=== PATIENT | female | born 1985 | race Caucasian/White ===

== ENCOUNTER 2016-12-28 02:59 | Emergency (ER) | payer MEDICAID ==
[~2016-12-28] VITALS: Wt 87.0 kg
[~2016-12-28 02:59] MED LIST: BEN25 PO; METO10TA96 PO; NITR-58 PO; PREN1TAB13 PO
[2016-12-28] MEDS ORDERED: KETOROLAC 15 MG INJ IV STA (03:56)
[2016-12-28] MEDS ORDERED: morphine 4 MG/ML VIAL IV STA (03:56)
[2016-12-28] MEDS ORDERED: ONDANSETRON 4 MG INJ IV STA (03:56)
[2016-12-28] MEDS ORDERED: SOD CHLORIDE 0.9% 500 ML IV STA (03:56)
[2016-12-28 04:28] LABS: BASOPHIL # 0.1 10^3/ul (0.0-0.1); BASOPHILS % 0.7 % (0.0-2.0); EOSINOPHILS # 0.1 10^3/ul (0.0-0.5); EOSINOPHILS % 1.4 % (0.0-7.0); HEMATOCRIT 38.4 % (37.0-47.0); HEMOGLOBIN 12.5 g/dl (12.0-16.0); LYMPHOCYTES % 40.2 % (15.0-51.0); MEAN CORPUSCULAR HEMOGLOBIN 26.3 pg (29.0-33.0); MEAN CORPUSCULAR HGB CONC 32.6 g/dl (32.0-37.0); MEAN CORPUSCULAR VOLUME 80.7 fl (82.0-101.0); MEAN PLATELET VOLUME 10.9 fl (7.4-10.4); MONOCYTE # 0.5 10^3/ul (0.3-0.9); MONOCYTES % 6.1 % (0.0-11.0); NEUTROPHIL # 3.8 10^3/ul (1.6-7.5); NEUTROPHILS % 51.5 % (39.0-77.0); PLATELET COUNT 265 10^3/UL (140-415); RED BLOOD COUNT 4.76 10^6/ul (4.20-5.40); WHITE BLOOD COUNT 7.3 10^3/ul (4.8-10.8)
[2016-12-28 04:42] LABS: ADD UMIC YES; UR ASCORBIC ACID NEGATIVE (NEGATIVE); UR BILIRUBIN (Dip) NEGATIVE (NEGATIVE); UR BLOOD (Dip) 3+ mg/dL (NEGATIVE); UR CLARITY CLOUDY (CLEAR); UR COLOR RED (YELLOW); UR GLUCOSE (Dip) 1+ mg/dL (NEGATIVE); UR KETONES (Dip) NEGATIVE (NEGATIVE); UR LEUKOCYTE ESTERASE (Dip) TRACE Leu/ul (NEGATIVE); UR MUCUS MANY /HPF (NONE SEEN); UR NITRITE (Dip) NEGATIVE (NEGATIVE); UR RBC > 182 /HPF (0-5); UR SPECIFIC GRAVITY (Dip) 1.031 (1.003-1.030); UR SQUAMOUS EPITHELIAL CELL FEW /HPF (FEW); UR TOTAL PROTEIN (Dip) 3+ mg/dl (NEGATIVE); UR UROBILINOGEN (Dip) NEGATIVE (NEGATIVE)
[2016-12-28] MEDS ORDERED: HYDROmorphONE 1 MG/ML SYG IV STA (04:44)
[2016-12-28 04:52] LABS: CALCIUM 9.5 mg/dl (8.4-10.2); CREATININE 0.77 mg/dl (0.44-1.00); POTASSIUM 4.2 mmol/L (3.5-5.1)
[2016-12-28] MEDS ORDERED: IBUP200C PO (05:18)
--- NOTE | 2016-12-28 06:16 | ERD ---
ER Documentation Chief Complaint Date/Time DATE: 12/28/16 TIME: 06:06 Chief Complaint Left sided Flank pain since 2300 HPI 31-year-old female presenting with severe left flank pain since 11 PM. The pain radiates to the left lateral abdomen. She denies any associated hematuria or dysuria. She started her period this morning. She complains of associated nausea but no vomiting, fever, diarrhea, constipation, shortness of breath or chest pain. She denies a history of kidney stones. ROS All systems reviewed and are negative except as per history of present illness. Medications Home Meds Reported Medications Ibuprofen* (Ibuprofen*) 200 Mg Capsule, 400 MG PO Q6, CAP 12/28/16 Discontinued Reported Medications Vit-Iron Fumarate-FA ( Vitamins Tablet) 1 Tab Tablet, 1 TAB PO DAILY, #100 07/09/15 Discontinued Scripts Diphenhydramine Hcl* (Benadryl*) 25 Mg Cap, 25 MG PO Q6, #30 CAP Prov:AG LARSEN 03/21/16 Metoclopramide Hcl* (Metoclopramide Hcl*) 10 Mg Tablet, 10 MG PO Q6H Y for NAUSEA AND OR VOMITING for 3 Days, TAB Prov:AG LARSEN 03/21/16 Nitrofurantoin Monohyd Macrocr* (Macrobid*) 100 Mg Capsr, 100 MG PO BID for 7 Days, CAP Prov:SUZIEAG ROSENTHAL C 03/21/16 Allergies Allergies: Coded Allergies: No Known Allergy (Unverified , 12/28/16) PMhx/Soc Medical and Surgical Hx: pt denies Medical Hx, pt denies Surgical Hx History of Surgery: No Anesthesia Reaction: No Hx Neurological Disorder: No Hx Respiratory Disorders: No Hx Cardiac Disorders: No Hx Psychiatric Problems: No Hx Miscellaneous Medical Probl: No Hx Alcohol Use: No Hx Substance Use: No Hx Tobacco Use: No Smoking Status: Never smoker FmHx Family History: No diabetes Physical Exam Vitals Vital Signs Date Time Temp Pulse Resp B/P Pulse Ox O2 Delivery O2 Flow Rate FiO2 12/28/16 05:20 80 18 109/65 100 Room Air 12/28/16 03:10 96.9 65 20 146/91 100 Physical Exam Const: Crying in distress secondary to pain, nontoxic Head: Atraumatic Eyes: Normal Conjunctiva ENT: Normal External Ears, Nose and Mouth. Neck: Full range of motion..~ No meningismus. Resp: Clear to auscultation bilaterally Cardio: Regular rate and rhythm, no murmurs Abd: Soft, non tender, non distended. Normal bowel sounds Skin: No petechiae or rashes Back: No midline or flank tenderness Ext: No cyanosis, or edema Neur: Awake and alert Psych: Normal Mood and Affect Result Diagram: 12/28/16 0400 12/28/16 0400 Results 24 hrs Laboratory Tests Test 12/28/16 04:00 White Blood Count 7.310^3/ul Red Blood Count 4.7610^6/ul Hemoglobin 12.5g/dl Hematocrit 38.4% Mean Corpuscular Volume 80.7fl Mean Corpuscular Hemoglobin 26.3pg Mean Corpuscular Hemoglobin Concent 32.6g/dl Red Cell Distribution Width 17.0% Platelet Count 56507^3/UL Mean Platelet Volume 10.9fl Neutrophils % 51.5% Lymphocytes % 40.2% Monocytes % 6.1% Eosinophils % 1.4% Basophils % 0.7% Nucleated Red Blood Cells % 0.0/100WBC Neutrophils # 3.810^3/ul Lymphocytes # 3.010^3/ul Monocytes # 0.510^3/ul Eosinophils # 0.110^3/ul Basophils # 0.110^3/ul Nucleated Red Blood Cells # 0.010^3/ul Urine Color RED Urine Clarity CLOUDY Urine pH 6.0 Urine Specific [place] 1.031 Urine Ketones NEGATIVEmg/dL Urine Nitrite NEGATIVEmg/dL Urine Bilirubin NEGATIVEmg/dL Urine Urobilinogen NEGATIVEmg/dL Urine Leukocyte Esterase TRACELeu/ul Urine Microscopic RBC > 182/HPF Urine Microscopic WBC 181/HPF Urine Squamous Epithelial Cells FEW/HPF Urine Mucus MANY/HPF Urine Hemoglobin 3+mg/dL Urine Glucose 1+mg/dL Urine Total Protein 3+mg/dl Sodium Level 145mmol/L Potassium Level 4.2mmol/L Chloride Level 105mmol/L Carbon Dioxide Level 26mmol/L Anion Gap 18 Blood Urea Nitrogen 23mg/dl Creatinine 0.77mg/dl Glucose Level 107mg/dl Calcium Level 9.5mg/dl Lipase 74U/L Current Medications Medications (Trade) Dose Ordered Sig/Edward Route PRN Reason Start Time Stop Time Status Last Admin Dose Admin Sodium Chloride (NS) 500 ml @ 500 mls/hr Q1H STAT IV 12/28/16 03:56 12/28/16 04:55 DC 12/28/16 04:06 Morphine Sulfate (morphine) 4 mg ONCE STAT IV 12/28/16 03:56 12/28/16 03:58 DC 12/28/16 04:06 Ondansetron HCl (Zofran Inj) 4 mg ONCE STAT IV 12/28/16 03:56 12/28/16 03:58 DC 12/28/16 04:06 Ketorolac Tromethamine (Toradol) 15 mg ONCE STAT IV 12/28/16 03:56 12/28/16 03:58 DC 12/28/16 04:07 Hydromorphone HCl (Dilaudid) 1 mg ONCE STAT IV 12/28/16 04:44 12/28/16 04:45 DC 12/28/16 04:54 Procedures/MDM EMERGENT LABS AND DIAGNOSTIC STUDIES: Lab Results above were reviewed and interpreted by me. CBC: no anemia or evidence of infection CMP: Mild elevation of BUN. No evidence of electrolyte abnormality, renal failure, hypoglycemia, liver failure, or biliary obstruction UA: Positive RBCs, positive WBCs, positive blood Radiology Results as interpreted by Radiology below were reviewed by Bertha Kendrick MD: CT abdomen and pelvis pending Initial Nursing notes reviewed. Previous Medical Records requested via the Electronic Health Record. EMERGENCY DEPARTMENT COURSE / MEDICAL DECISION MAKING: Patient symptoms are concerning for most likely renal colic. Her vitals are stable and she is afebrile and nontoxic. I have a lower suspicion for cardiac etiology, pulmonary etiology, aortic dissection, acute surgical abdomen. Nausea and pain medications were given with good relief. The patient states she went to the bathroom prior to the CT scan and felt a sharp, cutting pain when urinating in her urethral area. Now she does not have any significant pain. With regard to the white blood cells in her urine, this number is proportional to the amount of blood. I have a low suspicion for infection. Urine culture will be sent. At this time I do not think she needs any antibiotics. Patient will be signed out to the oncoming ED physician who will follow up on her CT scan results and discuss them with the patient. I believe the patient is stable for discharge after the CT results confirm no serious abnormalities. Departure Diagnosis: Primary Impression: Left flank pain Condition: Stable RUDY KENDRICK MD Dec 28, 2016 06:16
--- NOTE | 2016-12-28 06:19 | RADRPT ---
PROCEDURE: CT Abdomen and pelvis without contrast. CLINICAL INDICATION: Left flank pain TECHNIQUE: CT scan of the abdomen and pelvis without contrast was performed on a multidetector hig h-resolution CT scan. . Coronal and sagittal reformatted images were obtained from the axial [facility] e images. Standard CT scan of the abdomen pelvis without contrast protocols were performed. The total exam CTDI equals 19.3 mGy and the total exam DLP equals 1159.07 mGy-cm. One or more of the following dose reduction techniques were used: - Automated exposure control. - Adjustment of the mA and/or kV according to patient size. Use of iterative reconstruction technique. COMPARISON: None. FINDINGS: The kidneys are normal in size without hydronephrosis bilaterally. There are 2 punctate 1-2 mm calc ified calculi involving the inferior left kidney. No other calcified renal calculi bilaterally. No evidence of intra renal masses bilaterally. There is a 3 mm calcified calculus in the midline depe ndent inferior portion of the urinary bladder consistent with a passed calculus. The urinary bladde r is otherwise unremarkable. Note that the left ureter is diffusely and mildly dilated to the level of the urinary bladder and the bladder calculus is probably passed from the left renal collecting s ystem. No evidence of right hydroureter. The liver spleen pancreas adrenal glands and gallbladder are unremarkable. No evidence of biliary d uctal dilation. The stomach, small bowel large bowel and appendix are unremarkable. Negative for intra-abdominal fr ee air, free fluid, abscesses or lymphadenopathy. The uterus is anteverted and anteflexed but otherwise unremarkable. The adnexa are unremarkable. T here is atherosclerotic vascular disease present but no evidence of aortic aneurysm. The lung bases are unremarkable. The osseous structures are unremarkable without acute osseous find ings are osteoblastic/osteolytic lesions. There is a tiny fat containing umbilical hernia but no he rniated bowel or strangulation. IMPRESSION: 1. Two punctate 1-2 mm inferior left renal nonobstructing calcified calculi. There is a 3 mm calci fied calculus in the dependent portion of the urinary bladder consistent with a recently passed calc ulus from a left urinary collecting system as described above. Specifically there is mild diffuse l eft hydroureter but no hydronephrosis. No evidence of right hydronephrosis. 2. Unremarkable appendix. 3. Negative for intra-abdominal free air fluid abscesses or lymphadenopathy. RPTAT:AAJJ Physician Janeth Date Time Electronically viewed and signed by Dagoberto Pardo Physician on 12/28/2016 06:19 RUTH/
[2016-12-28] MEDS ORDERED: HYDR-906 PO (06:24)
[2016-12-28] MEDS ORDERED: IBUP-1542 PO (06:24)
[2016-12-28 07:51] VITALS: BP 110/72; PULSE 67; RESP 18; TEMP 97.6
== END 2016-12-28 07:59 | disposition home or self-care (01) ==
LOC: E/R 02:59
DX: R10.9 Unspecified abdominal pain (principal); R11.0 Nausea
CPT/HCPCS: 36415; 74176; 80048; 81001; 83690; 85025; 87086; 96361; 96374; 96375; J1170; J1885; J2270; J2405; J7040; Z7502